=== PATIENT | female | born 1990 | race Caucasian/White ===

== ENCOUNTER → 2018-11-05 08:01 | Outpatient (CLI) | payer OTHER, SELFPAY ==
--- NOTE | 2018-11-05 08:20 | RAD_ITS ---
STUDY: X-RAY - ABDOMEN/PELVIS REASON FOR EXAM: Female, 28 years old. Left side kidney stone, no recent pain. TECHNIQUE: 2, supine, frontal projections encompassing the abdomen and pelvis. COMPARISON: None. FINDINGS: No pathologic calcifications are identified. The bowel gas pattern is nonspecific. Air and stool are identified within the rectum. There is no gross free air on either of these 2 supine projections. The osseous structures appear normal. There is no plain film evident intra-abdominal mass or mass effect. RAD/Abdomen Single View IMPRESSION: No plain film evidence of nephrolithiasis or nephrocalcinosis. No calcifications identified along the expected course of either ureter. No evident obstruction. No gross free air on these supine views. No plain film evident intra-abdominal mass or mass effect. Electronically Signed: Job Keating MD at 13:51 EDT , Service support ,
== END ==
PROVIDERS: Family Provider Physician Assistant; PCP Physician Assistant; Referring Provider Urology; Visit Provider Urology
DX: N20.0 Calculus of kidney (principal)
CPT/HCPCS: 74018

== ENCOUNTER → 2021-03-10 11:42 | Outpatient (CLI) | payer SELFPAY ==
[2021-03-10 13:17] LABS: Absolute Neutrophil Count 4.4 X10^3/uL (2.0-7.7); Basophil# 0.02 X10^3/uL; Basophil% 0.3 % (0-1); Eosinophil# 0.06 X10^3/uL; Eosinophils% 0.9 % (0-5); Hematocrit 40.1 % (37-47); Lymphocyte % 20.5 % (19-41); Mean Corp Hgb Conc 32.4 g/dL (32-36); Mean Corpuscular Hgb 28.6 pg (27.0-32.0); Mean Corpuscular Volume 88.1 fL (81-99); Mean Platelet Vol. 10.8 fl (6.2-12.0); Monocyte# 0.53 X10^3/uL; Monocyte% 8.3 % (0-10); NRBC Flagged by Analyzer 0 % (0-5); Neutrophil # 4.42 X10^3/uL (2.7-7.7); Neutrophil % 69.7 % (47-70); Platelet Count 270 K/mm3 (150-450); RBC Distribution Width CV 13.5 % (11.6-14.6); RBC Distribution Width SD 43.9 fl (35.1-43.9); Red Blood Count 4.55 M/mm3 (4.2-5.4); White Blood Count 6.4 K/mm3 (4.4-11.0)
[2021-03-10 13:18] LABS: Color, Urine Yellow (Yellow); Glucose, Dipstick Normal (Normal); Ketone-Dipstick Negative (Negative); Leukocyte Esterase-Dipstick 25 /ul (Negative); Nitrite-Dipstick Negative (Negative); Occult Blood-Urine Negative /ul (Negative); Protein-Dipstick Negative (Negative); Urine Bilirubin Dipstick Negative (Negative); Urine Clarity Cloudy (Clear); Urine Urobilinogen Normal (Normal)
[2021-03-10 13:35] LABS: Thyroid Stim Hormone (TSH) 1.63 uIU/mL (0.358-3.74)
[2021-03-10 14:06] LABS: HIV - WCH Non-Reactive (Nonreactive); Hepatitis B Surface Antigen Non-Reactive (Nonreactive); Hepatitis C Antibody Non-Reactive (Nonreactive); Rubella IgG Non-Reactive (Nonreactive); Syphilis Antibodies Non-reactive
[2021-03-12 03:07] LABS: Chlamydia By Nucleic Acid AMP Negative (Negative)
[2021-03-12 07:45] LABS: Gonococcus By Nucleic Acid AMP Negative (Negative)
[2021-03-12 12:59] LABS: HPV Reflexed? NOT INDICATED
== END ==
PROVIDERS: PCP Physician Assistant; Visit Provider Obstetrics & Gynecology
DX: Z34.81 Encounter for supervision of other normal pregnancy, first trimester (principal); Z12.4 Encounter for screening for malignant neoplasm of cervix; Z11.3 Encounter for screening for infections with a predominantly sexual mode of transmission
CPT/HCPCS: 36415; 81002; 84443; 85025; 86703; 86762; 86780; 86803; 87086; 87340; 87491; 87591; 88175; G0145

== ENCOUNTER 2021-07-05 15:20 | Outpatient (CLI) | payer SELFPAY ==
[2021-07-05 16:07] LABS: Hematocrit 35.9 % (37-47); Hemoglobin 11.7 g/dL (12.0-15.0); Mean Corp Hgb Conc 32.6 g/dL (32-36); Mean Corpuscular Hgb 29.3 pg (27.0-32.0); Mean Corpuscular Volume 89.8 fL (81-99); Mean Platelet Vol. 10.5 fl (6.2-12.0); Platelet Count 239 K/mm3 (150-450); RBC Distribution Width CV 14.6 % (11.6-14.6); RBC Distribution Width SD 48.1 fl (35.1-43.9); White Blood Count 9.6 K/mm3 (4.4-11.0)
[2021-07-05 17:14] LABS: Glucose Challenge Gest 1H 50g 88 mg/dL (70-140)
== END 2021-07-05 23:59 | disposition short-term general hospital (02) ==
LOC: WOBLAB 15:21
PROVIDERS: PCP Physician Assistant; Visit Provider Obstetrics & Gynecology
DX: Z34.82 Encounter for supervision of other normal pregnancy, second trimester (principal)
CPT/HCPCS: 36415; 82950; 85027

== ENCOUNTER 2021-09-23 13:22 | Outpatient (CLI) | payer SELFPAY | END 2021-09-23 23:59 | disposition home or self-care (01) | LOC: WOBLAB 13:23 | PROVIDERS: PCP Physician Assistant; Visit Provider Obstetrics & Gynecology | DX: Z36.85 Encounter for antenatal screening for Streptococcus B (principal) | CPT/HCPCS: 87081 ==

== ENCOUNTER 2021-10-21 01:03 | Inpatient (IN) | payer SELFPAY ==
[2021-10-21] VITALS (44 sets, daily range): BP systolic 88–241; BP diastolic 49–128; PULSE 67–111; RESP 16; TEMP 36.1–37; O2SAT 97–100; BMI 34.4
[2021-10-21 00:59] LABS: ROM Internal Control Test YES-OK TO RESULT pt. (Internal QC)
[2021-10-21 01:01] LABS: ROM Patient Test POSITIVE (Negative)
[2021-10-21] MEDS: Lactated Ringers 1,000 ML 50 ML IV ×2 (01:20→07:06)
[2021-10-21 01:37] LABS: Absolute Neutrophil Count 5.3 X10^3/uL (2.0-7.7); Basophil# 0.02 X10^3/uL; Basophil% 0.3 % (0-1); Eosinophil# 0.04 X10^3/uL; Eosinophils% 0.5 % (0-5); Hematocrit 37.5 % (37-47); Hemoglobin 12.1 g/dL (12.0-15.0); Mean Corp Hgb Conc 32.3 g/dL (32-36); Mean Corpuscular Hgb 27.9 pg (27.0-32.0); Mean Corpuscular Volume 86.4 fL (81-99); Mean Platelet Vol. 11.5 fl (6.2-12.0); Monocyte# 0.63 X10^3/uL; Monocyte% 8.2 % (0-10); NRBC Flagged by Analyzer 0 % (0-5); Neutrophil # 5.33 X10^3/uL (2.7-7.7); Neutrophil % 68.9 % (47-70); Platelet Count 194 K/mm3 (150-450); RBC Distribution Width CV 14.2 % (11.6-14.6); RBC Distribution Width SD 45.1 fl (35.1-43.9); Red Blood Count 4.34 M/mm3 (4.2-5.4); White Blood Count 7.7 K/mm3 (4.4-11.0)
[2021-10-21] MEDS: Lactated Ringers 500 ML 999 ML IV ×2 (02:20→03:51)
[2021-10-21] MEDS: fentaNYL-bupivacaine (epidural) 100 ML BAG EPIDURAL ×2 (03:10→07:06)
[2021-10-21] MEDS: Mag Hydrox/Al Hydrox/Simeth 30 ML UDC PO ×2 (03:23→07:30)
[2021-10-21] MEDS: Ondansetron 4 MG/2 ML Vial IV (03:51)
[2021-10-21] MEDS: Oxytocin 30 units/NS 500 ml 30 UNITS/500 ML IV.SOLN IV (07:43)
--- NOTE | 2021-10-21 09:05 | HP.PCM_ITS ---
History and Physical Date of Admission: 10/20/21 ACOG ANTEPARTUM RECORD - HISTORY AND PHYSICAL (10/21/2021) Name: TAMMY KWOK History of this : This is a 31 year old [id number] presents at 40 wks + 0 days gestation with SROM at home. OB Physician: Guy Campo MD [place]'s Physician: PED SUPERVISOR COIN MACHINE ...................................................................... : 1990 Age: 31 [address]: [address] [place] [address] Phone: (H) [phone] (O) [phone] Insurance Carrier: Emergency Contact: ...................................................................... 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 Prefers not to have an epidural, if possible. Childbirth ed class enc. Rubella NON-IMMUNE!! Spouse has 5 siblings and a cousin born without Thyroid glands. 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 Illicit Drug Use - denies use of street drugs Sexual Activity - Residence - Lives w/ Place of - [place] Hours Worked - 30 hrs a week Spouse-Sig Other Name - Alejandro Kwok Spouse-Sig Other Occupation - Environmental Science Technician for [employer] Spouse-Sig Other Phone No - [phone] PRIOR DELIVERY HISTORY DEL DATE GEST LAB WT LB WT OZ TYPE ANES LABOR TX 01 May 21 7 0 0 0 Sab General No 01 Oct 09 8 0 0 0 Sab None No 03 Sep 20 12 0 0 0 Sab General No ANTEPARTUM FLOW CHART VISIT RTC FU F F MT U U DATE WK MD WKS HT PN HR M SS BP ED WT MT GL D EF ST __ ____ ___ __ __ ___ __ __ __ ___ __ __ __ ___ __ Oct JMW 1 38 V + + 116/64 0 238 - - 3+ 85 -2 13 Oct 39 JMW 1 38 V + + 122/78 sl 236 ne ne 3 80 -2 05 Apr 37 JMW 1 38 V + + 120/80 sl 235 tr - 2+ 65 -2 29 Aug 36 JMW 1 36 + + 126/78 0 236 ne - 24 Aug 36 JMW 1 36 V + + 106/76 0 236 ne ne 2 50 -2 10 Aug 34 CM 2 34 V + + 118/70 0 232 1+ ne 17 Aug 31 JMW 2 31 + + 120/70 0 227 - - 20 Jul 29 JMW 3 27 + + 130/68 0 224 tr ne 03 Jul 26 JMW 4 24 + + 118/70 sl 225 - - 03 Jun 21 JM 4 - - + + 114/78 0 213 - - 26 Apr 15 JMW 4 14 + 0 122/70 0 211 - - 06 Apr 13 JMW 4 + O 122/74 0 205 tr - ANTEPARTUM NOTE(S): Oct 20 2021: Good FM Oct 13 2021: FM well, No complaints, No cx. Oct 05 2021: good FM now Sep 28 2021: No problems, Good FM Sep 23 2021: Good FM Sep 09 2021: No complaints or concerns voiced Aug 19 2021: doing well, Good FM Jul 22 2021: Sprained Left ankle approx. two weeks ago Jul 05 2021: heartburn, try nexium?, One Hr PG today Jun 04 2021: 1 hr GTT supplies given Apr 27 2021: see prog note Apr 07 2021: Ctxs-occas, Fatigue continues COMPREHENSIVE ANTEPARTUM NOTE(S): Oct 20 2021: Tammy is 40weeks here for PNV good FM no edema. Denies any contractions. Would like cervical check. BR Oct 05 2021: FM, SROM, and labor reviewed. States baby was not as active this am but after shower and laying down felt mvmt. She is offered NST and declines. LMT Oct 05 2021: H taken to OB. tkg Sep 28 2021: Tammy is here for PNV. Offers no complaints today. Reports good FM. Sep 23 2021: Tammy is here at 36.1 w gest. Baby is active. No edema. LARC signed today as declined. GBS due today and explained. Notes she sometimes has heart beating harder when she lays down at hs. Lasts no longer than one minute. DRC. Sep 09 2021: 34/1w. Feeling well. F/u 2w. CM Aug 19 2021: Tammy is doing well. She is without complaint or concern. Reviewed FM, PTL, PROM. Encouraged Tdap. LMT Jul 05 2021: Tammy is 24w5d here for PNV with FOB. Positive movement. Slight edema. She C/O heartburn. Otherwise she is doing well with no complaints or questions. BR Jun 04 2021: Tammy is here for a PNV w/ SO at 20/2. Good FM. No edema present. No concerns expressed. Doing a gender reveal w/ family this weekend, very excited. 1 hr GTT supplies and instructions given for next appt. MK Jun 04 2021: 20wk, anatomy u/s wnl. Gender reveal in [place] and [place] this . 1hr GTT next visit. JM Apr 27 2021: Tammy is here today for her visit. Patient states that she has been doing well. She is requesting to have MSAFP testing done but will plan to go to [place] office for this lab draw. 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 Tammy is a 30 year old A3 with an CHARLY of 10/20/2021, current GA is 12 w 1 d. She resides with her , Alejandro, and she states that he is supportive and they are both happy, but nervous about the , given her history of SAB's. Tammy reports that she feels daily nausea, no emesis. She has been able to eat and drink, but states that she nee REVIEW OF SYSTEMS: GENERAL - Denies fever, or chills SKIN - Denies rash, new skin lesions, or change in moles EYES - Denies blurred vision, or change in visual acuity EARS - Denies ear pain, or difficulty hearing NOSE - Denies nasal congestion, discharge, or bleeding MOUTH - Denies sore throat, or difficulty swallowing NECK - Denies pain or swelling RESPIRATORY - Denies shortness of breath, cough, wheezing CARDIOVASCULAR - Denies palpitations, chest pain, orthopnea, PND, peripheral edema, syncope or claudication GASTROINTESTINAL - Denies nausea, vomiting, diarrhea, constipation, Denies abdominal pain, melena and or bright red blood GENITOURINARY - Denies dysuria, frequency of urination, urgency, or hesitancy MUSCULOSKELETAL - Denies joint or muscle pain, or back pain NEUROLOGICAL - Denies localized numbness, weakness, or tingling PSYCHIATRIC - Denies depression, anxiety, substance abuse or suicide attempts ENDOCRINE - Denies heat or cold intolerance, weight loss or gain, increasing thirst HEMATO-IMMUNOLOGIC - Denies easy bruising, bleeding, oral ulcerations or recurre nt infections GENETICS SCREENING: Age 35+ years: No Thalassemia: No Neural Tube Defect: No Down Syndrome: No KYRIE-SACHS: No Sickle Cell Disease: No Hemophilia: No Musc. Dystrophy: No Cystic Fibrosis: No-declines screening [place] Chorea: No Mental Retardation: No Fragile X: No Other genetic: No Other defects: No SABs/still births: Yes x3 Drugs since LMP: No INFECTION HISTORY: High risk AIDS: No High risk Hepatitis: No Exposed to TB: No Exposed to Herpes: No Rash/viral illness since LMP: No History of STD: No MENSTRUAL HISTORY: *Menses Amount/Duration: 5 daysMenses Regularity: RegularMenarche (Age Onset): 13* PAST SUMMARY: PARITY: 1. Total Pregnancies............ 4 2. Full Term Pregnancies........ 0 3. Premature.................... 0 4. Abortions - Induced.......... 0 5. Abortions - Spontaneous...... 3 6. Ectopics..................... 0 7. Multiple Births.............. 0 8. Living Children.............. 0 PAST #1: Date of :.................. 04/02/09 Gestation Weeks:................ 8 Length of labor(hours):......... 0 Sex:............................ Weight-lbs:............... 0 Weight-oz:................ 0 Type of Delivery:............... Sab Type of Anesthesia:............. None Place of Delivery:.............. none Treatment of Labor?:.... No Comment: DATE APPROX., NO D+C PAST #2: Date of :.................. 05/03/19 Gestation Weeks:................ 7 Length of labor(hours):......... 0 Sex:............................ Weight-lbs:............... 0 Weight-oz:................ 0 Type of Delivery:............... Sab Type of Anesthesia:............. General Place of Delivery:.............. [facility] Treatment of Labor?:.... No Comment: DATE APPROX PAST #3: Date of :.................. 09/02/20 Gestation Weeks:................ 12 Length of labor(hours):......... 0 Sex:............................ Weight-lbs:............... 0 Weight-oz:................ 0 Type of Delivery:............... Sab Type of Anesthesia:............. General Place of Delivery:.............. [facility] Treatment of Labor?:.... No Comment: PHYSICAL EXAMINATION General Appearence: 31 yo female in no acute distress Vital Signs: AF, VSS Heart: RRR without rubs or gallops Lungs: CTA x 2 Breasts: deferred Abdomen: gravid Pelvis: Cervix: Presentation: cephalic Station: Fetus: Size: AGA Movement: present Heart: present LAB TEST(S) ORDERED SINCE:01/23/21 03/12/2021 URINE CULTURE 03/12/2021 PAP IG W/REFLEX HR HPV APTIMA 03/12/2021 CHLAMYDIA/GC JEYSON APTIMA 03/10/2021 URINALYSIS, ROUTINE (DIPSTICK) 03/10/2021 THYROID STIM HORMONE (TSH) 03/10/2021 RUBELLA IGG 03/10/2021 T AND S-NO CHARGE W/PNP 03/10/2021 L509.8000 03/10/2021 HIV - WC 03/10/2021 HEPATITIS C ANTIBODY 03/10/2021 HEPATITIS B SURFACE ANTIGEN 03/10/2021 CBC W/DIFF, AUTOMATED 10/21/2021 TYPE AND SCREEN 10/21/2021 COVID 19 AG RAPID (RN COLLECT) 10/20/2021 CBC W/DIFF, AUTOMATED 10/20/2021 (ROM) RUPTURE OF MEMBRANES 09/26/2021 RULE OUT BETA STREP (GRP. B) 07/05/2021 GLUCOSE CHALLENGE GEST 1H 50G 07/05/2021 CBC-COMPLETE BLOOD CNT NO DIFF == ==== Order Observation Description Value Ref_Range A* Site == ==== Labor [facility]~[address] [place], [address]~ TYPE AND SCRE AB SCREEN GEL NEGATIVE ML CBC W/DIFF, AUT NOTE ADAMS CBC W/DIFF, AUT WBC 7.7 K/mm3 4.4-11.0 ML CBC W/DIFF, AUT RBC 4.34 M/mm3 4.2-5.4 ML CBC W/DIFF, AUT HGB 12.1 g/dL 12.0-15.0 ML CBC W/DIFF, AUT HCT 37.5 37-47 ML CBC W/DIFF, AUT MCV 86.4 fL 81-99 ML CBC W/DIFF, AUT MCH 27.9 pg 27.0-32.0 ML CBC W/DIFF, AUT MCHC 32.3 g/dL 32-36 ML CBC W/DIFF, AUT RDW CV 14.2 11.6-14.6 ML CBC W/DIFF, AUT RDW SD 45.1 fl 35.1-43.9 H ML CBC W/DIFF, AUT PLT 194 K/mm3 150-450 ML CBC W/DIFF, AUT MPV 11.5 fl 6.2-12.0 ML CBC W/DIFF, AUT NEUT% 68.9 47-70 ML CBC W/DIFF, AUT LY% 22.0 19-41 ML CBC W/DIFF, AUT MONO% 8.2 0-10 ML CBC W/DIFF, AUT EO% 0.5 0-5 ML CBC W/DIFF, AUT BASO% 0.3 0-1 ML CBC W/DIFF, AUT IG% 0.100 0.0-0.9 ML IG% - Immature Granulocytes (promyelocytes, myelocytes and metamyelocytes) > 1% indicates that a LEFT SHIFT is Present. CBC W/DIFF, AUT ABSOLUTE NEUT 5.3 X10 3/uL 2.0-7.7 ML CBC W/DIFF, AUT ABSOLUTE LYMPH 1.70 X10 3/uL 0.83-4.51 ML CBC W/DIFF, AUT NUCLEATED RBC 0 0-5 ML COVID 19 AG RAP NOTE ADAMS (ROM) RUPTURE O NOTE ADAMS (ROM) RUPTURE O ROM POSITIVE Negative A ML Amniotic fluid present indicates rupture of Membranes. RESULTS CALLED TO Onesimo WORTHY RN WP 10/21/21 0059 Remington Mederos. REPORT READ BACK BY SAME. RULE OUT BETA S NOTE ADAMS GLUCOSE CHALLEN NOTE ADAMS GLUCOSE CHALLEN GLU GEST 50G 1H 88 mg/dL 70-140 ML CBC-COMPLETE BL NOTE ADAMS CBC-COMPLETE BL WBC 9.6 K/mm3 4.4-11.0 ML CBC-COMPLETE BL RBC 4.00 M/mm3 4.2-5.4 L ML CBC-COMPLETE BL HGB 11.7 g/dL 12.0-15.0 L ML CBC-COMPLETE BL HCT 35.9 37-47 L ML CBC-COMPLETE BL MCV 89.8 fL 81-99 ML CBC-COMPLETE BL MCH 29.3 pg 27.0-32.0 ML CBC-COMPLETE BL MCHC 32.6 g/dL 32-36 ML CBC-COMPLETE BL RDW CV 14.6 11.6-14.6 ML CBC-COMPLETE BL RDW SD 48.1 fl 35.1-43.9 H ML CBC-COMPLETE BL PLT 239 K/mm3 150-450 ML CBC-COMPLETE BL MPV 10.5 fl 6.2-12.0 ML URINE CULTURE NOTE ADAMS PN N [facility]~[address] [place], [address]~ T AND AB SCREEN GEL NEGATIVE ML HEPATITIS C ANT NOTE ADAMS HEPATITIS C ANT HEPATITIS C AB Non-Reactive Nonreactive ML Non Reactive: < 0.8 Equivocal: >/= 0.8 to < 1.0 Reactive: >/= 1.0 The CDC recommends that a reactive/equivocal HCV antibody result be followed up by the HCV Nucleic Acid Amplification test ([id number]) HEPATITIS B HERI NOTE ADAMS HEPATITIS B HERI HEP B SURF AG Non-Reactive Nonreactive ML HIV - [facility] NOTE ADAMS HIV - [facility] HIV Non-Reactive Nonreactive ML L509.8000 NOTE ADAMS L509.8000 SYPHILIS ABS Non-reactive ML RUBELLA IGG NOTE ADAMS RUBELLA IGG RUBELLA IGG Non-Reactive Nonreactive ML Antibody Results Interpretation of Immune Status Non Reactive Presumed Non-Immune Equivocal Equivocal Reactive Presumed Immune THYROID STIM HO NOTE ADAMS THYROID STIM HO TSH 1.63 uIU/mL 0.358-3.74 ML URINALYSIS, ROU NOTE ADAMS URINALYSIS, ROU COLOR Yellow Yellow ML URINALYSIS, ROU URINE CLARITY Cloudy Clear ML URINALYSIS, ROU GLUCOSE, UR Normal mg/dl Normal ML URINALYSIS, ROU BILIRUBIN URINE Negative mg/dL Negative ML URINALYSIS, ROU KETONE UR Negative mg/dl Negative ML URINALYSIS, ROU SP.GR. DIPSTX 1.010 1.002-1.030 ML URINALYSIS, ROU PH UR 7.0 5.0 - 8.0 ML URINALYSIS, ROU PROT DIPSTX Negative mg/dl Negative ML URINALYSIS, ROU UROBILI Normal mg/dl Normal ML URINALYSIS, ROU NITRITE Negative Negative ML URINALYSIS, ROU OCCULT BLOOD-UR Negative /ul Negative ML URINALYSIS, ROU LEUK ESTERASE 25 /ul Negative A ML CBC W/DIFF, AUT NOTE ADAMS CBC W/DIFF, AUT WBC 6.4 K/mm3 4.4-11.0 ML CBC W/DIFF, AUT RBC 4.55 M/mm3 4.2-5.4 ML CBC W/DIFF, AUT HGB 13.0 g/dL 12.0-15.0 ML CBC W/DIFF, AUT HCT 40.1 37-47 ML CBC W/DIFF, AUT MCV 88.1 fL 81-99 ML CBC W/DIFF, AUT MCH 28.6 pg 27.0-32.0 ML CBC W/DIFF, AUT MCHC 32.4 g/dL 32-36 ML CBC W/DIFF, AUT RDW CV 13.5 11.6-14.6 ML CBC W/DIFF, AUT RDW SD 43.9 fl 35.1-43.9 ML CBC W/DIFF, AUT PLT 270 K/mm3 150-450 ML CBC W/DIFF, AUT MPV 10.8 fl 6.2-12.0 ML CBC W/DIFF, AUT NEUT% 69.7 47-70 ML CBC W/DIFF, AUT LY% 20.5 19-41 ML CBC W/DIFF, AUT MONO% 8.3 0-10 ML CBC W/DIFF, AUT EO% 0.9 0-5 ML CBC W/DIFF, AUT BASO% 0.3 0-1 ML CBC W/DIFF, AUT IG% 0.300 0.0-0.9 ML IG% - Immature Granulocytes (promyelocytes, myelocytes and metamyelocytes) > 1% indicates that a LEFT SHIFT is Present. CBC W/DIFF, AUT ABSOLUTE NEUT 4.4 X10 3/uL 2.0-7.7 ML CBC W/DIFF, AUT ABSOLUTE LYMPH 1.30 X10 3/uL 0.83-4.51 ML CBC W/DIFF, AUT NUCLEATED RBC 0 0-5 ML PAP IG W/REFLEX NOTE ADAMS PAP IG W/REFLEX DIAG Comment . LCI NEGATIVE FOR INTRAEPITHELIAL LESION OR MALIGNANCY. PAP IG W/REFLEX ADEQ Comment . LCI Satisfactory for evaluation. Endocervical and/or squamous metaplastic cells (endocervical component) are present. PAP IG W/REFLEX PERFORM Comment . LCI Juliet Thomas, Field Assistant (ASCP) This liquid based ThinPrep(R) pap test was screened with the use of an image guided system. PAP IG W/REFLEX COMM . . LCI PAP IG W/REFLEX PAPSMR Comment . LCI The Pap smear is a screening test designed to aid in the detection of premalignant and malignant conditions of the uterine cervix. It is not a diagnostic procedure and should not be used as the sole means of detecting cervical cancer. Both false-positive and false-negative reports do occur. PAP IG W/REFLEX HPV RFLX Comment . LCI The HPV DNA reflex criteria were not met with this specimen result therefore, no HPV testing was performed. Performed at: [address] [id number] [employer] Inspector And Repairer: Malou Colindres MD, Phone: [phone] CHLAMYDIA/GC NA NOTE ADAMS CHLAMYDIA/GC NA CHLAMY,NUC ACID Negative Negative LCI CHLAMYDIA/GC NA GC BY NUC ACID Negative Negative LCI Performed at: = - [address] [id number] Baseball Inspector And Repairer: Malou Colindres MD, Phone: [phone] A POSITIVE *Negative results from patients with symptom onset beyond five days should be treated as presumptive and confirmed by a molecular assay if clinically necessary. Negative results should not be used as the sole basis for treatment or for patient management. SARS-CoV-2 Ag Resp Ql IA.rapid *Positive results do not differentiate between SARS-CoV and SARS-CoV-2. If differentiation of the specific SARS virus is desired an additional sample and an additional order is required. SARS-CoV-2 Ag Resp Ql IA.rapid * This test has not been FDA cleared or approved; the test has been authorized by FDA under an Emergency Use Authorization (EAU) for use by laboratories certified under CLIA that meet the requirements to perform moderate, high, or waived complexity tests. SARS-CoV-2 Ag Resp Ql IA.rapid Normal Reference Range: Negative SARS-CoV-2 (COVID 19) Negative RAPID METHOD Quidel Lori Analyzer WILLIAN VAGINAL/RECTAL Group B Beta Streptococcus is not isolated. Culture exhibits no growth. A POSITIVE == ==== Impression /Plan: 40 wks + 1 days intrauterine in labor. Preparations in progress for delivery.
[2021-10-21] MEDS: Oxytocin 30 units/NS 500 ml 30 UNITS/500 ML IV.SOLN 334 UNITS IV (12:27)
[2021-10-21] MEDS: Methylergonovine 0.2 MG/ML Ampul IM (12:29)
--- NOTE | 2021-10-21 13:31 | OP.PCM_ITS ---
Maternal Data Information Final CHARLY: 10/20/21 Final CHARLY Source: [place] <20 weeks Gestational age: 40 weeks 1 day gestation Vaginal Delivery Maternal Presentation Maternal Presentation: Spontaneous Rupture of Membranes Operative Information Date of Procedure: 10/21/21 Pre-Operative Diagnosis: IUP Post-Operative Diagnosis: IUP Type of Anesthesia: Epidural Estimated Blood Loss: 350 cc Fluids Replaced: Crystalloid Findings Description of Procedure: Spontaneous vaginal delivery of a viable male infant with Apgars of 9/9 from an occiput anterior presentation with clear amniotic fluid and normal three-vessel placenta. Cord around the neck x1 loose. First- degree midline episiotomy extended to a second-degree midline laceration. Repaired with 3-0 Rapide suture and 3-0 Vicryl suture under epidural. Sponges okay. Delivery physician: Guy Campo MD. Presentation: Vertex and MICHELLE Amniotic Membrane Rupture Type: Spontaneous Amniotic Fluid Description: Clear Placental Delivery Description: Spontaneous Placenta Disposition: [facility] Cord Vessel Description: 3 Vessels Cord Entanglement: Around neck x 1, loose Infant A Gender: Male (1 minute): 9 (5 minute): 9 Post Vaginal Delivery Medications Given After Delivery: IV Pitocin and IM Methergin Episiotomy Description: Midline and 1st degree Laceration: Midline and 2nd degree Complication Complications: None
--- NOTE | 2021-10-21 19:54 | NURSING ---
this RN has reviewed and agrees with charting completed by Kristopher Pritchett, orienting RN
[2021-10-21] MEDS: Ibuprofen 600 MG Tablet PO (21:09)
[2021-10-22 01:00] VITALS: BP 106/64; PULSE 70; RESP 16; TEMP 36.1
[2021-10-22 04:45] VITALS: BP 112/66; PULSE 75; RESP 18; TEMP 36.2
[2021-10-22] MEDS: Ibuprofen 600 MG Tablet PO ×2 (05:22→11:20)
[2021-10-22] MEDS: Senna/Docusate Sodium 1 Tablet PO (05:22)
[2021-10-22] MEDS: Acetaminophen 500 MG Tablet 1000 MG PO (08:40)
[2021-10-22] MEDS: Benzocaine/Lanolin/Aloe Vera 1 SPRAY EACH TOPICAL (08:41)
[2021-10-22 08:50] VITALS: BP 105/63; PULSE 76; RESP 18; TEMP 36.3
--- NOTE | 2021-10-22 09:00 | PN.OBGYN_ITS ---
Subjective Subjective Reports she is sore this morning with some urinary incontinence. She is out of bed and ambulating without difficulty. She is breast-feeding and working with the healthcare management consultant on latch and transfer. Denies heavy lochia. Objective Data Objective Data Vital Signs: Vital Signs Temp Pulse Resp BP Pulse Ox 97.3 F L 76 18 105/63 98 10/22/21 08:50 10/22/21 08:50 10/22/21 08:50 10/22/21 08:50 10/21/21 15:56 Oxygen Delivery Method Room Air Weight: 108.862 kg Body Mass Index (BMI) 34.4 Intake & Output: Intake and Output for Last 24 Hours 10/20/21 10/21/21 10/22/21 23:59 23:59 23:59 Intake Total 2038.71 / 2038.71 Output Total 1250 / 1250 Balance 788.71 / 788.71 Lab / Micro Data Result Diagrams: 10/21/21 01:20 Micro: Microbiology 10/21/21 01:00 Nasal Secretion SARS-CoV-2 Antigen (Rapid) - Final Physical Exam Const alert, oriented x3 and no apparent distress Resp normal respiratory effort and normal air movement Cardio regular rate, regular rhythm, S1 normal heart sound and S2 normal heart sound Narrative: Lochia scant Uterus Palpation: uterus fundus firm and other OB fundus nontender Extremity no calf tenderness Neuro oriented x3 Assessment & Plan (1) (spontaneous vaginal delivery): COMMENT: Male infant, 9 pounds 2 ounces. PLAN: day #1 A+ Routine care is following Plan for DC home tomorrow
[2021-10-22 11:25] VITALS: BP 105/66; PULSE 73; RESP 18; TEMP 36.4
--- NOTE | 2021-10-22 13:19 | PCM.DC ---
Discharge Instructions Diet Discharge Diet: No restrictions Activity May resume sexual activity in: 6 weeks Lifting Restrictions: 10-20 lb Dressing / Incision Call your doctor if you observe: Fever of 101 or Higher, Using more than 1 pad per hour, Shortness of breath, Chest pain, Calf discomfort, Uncontrolled pain and - (Persistent or severe headache) Follow Up Care Please Follow Up With: Guy Campo MD When: 3 weeks for telehealth follow up 6 weeks for visit Test Results: Test results from this visit will be discussed in further detail at your follow-up appointment, if applicable. Discharge Plan Admission Admit Date/Time: 10/21/21 01:03 Primary Reason for Your Visit: Vaginal delivery Attending Provider: Guy Campo Primary Care Provider: Alva Berry Instructions Patient Instructions: After a Vaginal Additional Instructions / Restrictions: You may take Ibuprofen 800mg - 1 tablet by mouth every 8 hours as needed for pain. Prescription is sent to the [facility]. Discharge Orders/Prescriptions Prescriptions: No Action 1 tab PO/SL DAILY RF: 0 Referrals / Follow Up: Alva Berry PA [Primary Care Provider] - Disposition Disposition (needs filled in before D/C Order can be placed): Home, Self Care
== END 2021-10-22 16:50 | disposition home or self-care (01) | DRG 807 ==
LOC: WPOUT 01:07 → WP 01:07
PROVIDERS: Admitting Provider Obstetrics & Gynecology; PCP Physician Assistant; Visit Provider Obstetrics & Gynecology
DX: O42.92 Full-term premature rupture of membranes, unspecified as to length of time between rupture and onset of labor (principal); Z37.0 Single live birth; O26.23 Pregnancy care for patient with recurrent pregnancy loss, third trimester; O70.1 Second degree perineal laceration during delivery; O69.81X0 Labor and delivery complicated by cord around neck, without compression, not applicable or unspecified; Z3A.40 40 weeks gestation of pregnancy
CPT/HCPCS: 59025; 59050; 84112; 85025; 86850; 86900; 86901; 87426; 99218; J7120; G0378; J2405

== ENCOUNTER → 2022-12-20 | Outpatient (CLI) | payer SELFPAY ==
[2022-12-20 17:03] LABS: Absolute Lymphocyte Count 1.99 X10^3/uL (0.83-4.51); Absolute Neutrophil Count 4.6 X10^3/uL (2.0-7.7); Basophil# 0.03 X10^3/uL; Basophil% 0.4 % (0-1); Eosinophil# 0.06 X10^3/uL; Eosinophils% 0.8 % (0-5); Hematocrit 36.7 % (37-47); Hemoglobin 12.1 g/dL (12.0-15.0); Lymphocyte # 1.99 X10^3/ul (0.83-4.51); Lymphocyte % 27.4 % (19-41); Mean Corpuscular Hgb 28.5 pg (27.0-32.0); Mean Corpuscular Volume 86.6 fL (81-99); Mean Platelet Vol. 9.4 fl (6.2-12.0); Monocyte# 0.57 X10^3/uL; Monocyte% 7.9 % (0-10); NRBC Flagged by Analyzer 0 % (0-5); Neutrophil # 4.59 X10^3/uL (2.7-7.7); Neutrophil % 63.2 % (47-70); Platelet Count 272 K/mm3 (150-450); RBC Distribution Width SD 44.2 fl (35.1-43.9); Red Blood Count 4.24 M/mm3 (4.2-5.4); White Blood Count 7.3 K/mm3 (4.4-11.0)
[2022-12-20 18:17] LABS: HIV - WCH Non-Reactive (Nonreactive); Hepatitis B Surface Antigen Non-Reactive (Nonreactive); Hepatitis C Antibody Non-Reactive (Nonreactive); Rubella IgG Non-Reactive (Nonreactive); Syphilis Antibodies Non-reactive
[2022-12-22 05:07] LABS: V-Zoster IgG (Immunity) < 135 index (Immune >165)
[2022-12-23 06:08] LABS: Chlamydia By Nucleic Acid AMP Negative (Negative); Gonococcus By Nucleic Acid AMP Negative (Negative)
== END | disposition home or self-care (01) ==
LOC: WOBLAB 16:45
PROVIDERS: PCP Physician Assistant; Visit Provider Student in an Organized Health Care Education/Training Program
DX: Z34.81 Encounter for supervision of other normal pregnancy, first trimester (principal)
CPT/HCPCS: 36415; 85025; 86703; 86762; 86780; 86787; 86803; 87086; 87340; 87491; 87591